=== PATIENT | male | born 1995 | race Two or more races ===

== ENCOUNTER 2016-08-15 05:39 | Day surgery (SDC) | payer OTHER ==
[2016-08-14 11:06] VITALS: BMI 26.5
[2016-08-15 06:40] VITALS: TEMP 97.5
--- NOTE | 2016-08-15 07:07 | HP ---
Admitting History and Physical - Admission History of Present Illness: patient is a 21 y/o male with a past medical history of bipolar and depression , that presents for ECT, his last ECT was 06/28/16. He reports feeling ongoing symptoms of depression, patient denies any suicidal or homicidal ideation. He does report receiving in the past (aprox 12 years ago), at [facility] with good results. Patient does report increasing his klonopin dose to 1mg BID. He reports compliance with prescribed medication. - Past Medical History Psych: Yes: Bipolar, Depression - Smoking History Smoking history: Never smoked Have you smoked in the past 12 months: No - Alcohol/Substance Use Hx Alcohol Use: No History of Substance Use: reports: None - Social History ADL: Independent History of Recent Travel: No Home Medications - Allergies Allergies/Adverse Reactions: Allergies Allergy/AdvReac Type Severity Reaction Status Date / Time No Known Allergies Allergy Verified 06/22/16 14:13 - Home Medications Home Medications: Ambulatory Orders Cyanocobalamin (Vitamin B-12) [Vitamin B12] 2,500 mcg PO DAILY 06/22/16 Folic Acid 0.4 mg PO DAILY 06/22/16 Inositol Niacinate [Inositol Hexanicotinate] 1,000 gm MC TID 06/22/16 Olanzapine [Zyprexa] 5 mg PO HS 06/22/16 Clonazepam [KlonoPIN] 0.5 mg PO BID 08/14/16 Family Disease History - Family Disease History Family History: Denies Review of Systems - Review of Systems Constitutional: reports: No Symptoms Eyes: reports: No Symptoms HENT: reports: No Symptoms Neck: reports: No Symptoms Cardiovascular: reports: No Symptoms Respiratory: reports: No Symptoms Gastrointestinal: reports: No Symptoms Genitourinary: reports: No Symptoms Musculoskeletal: reports: No Symptoms Integumentary: reports: No Symptoms Neurological: reports: No Symptoms Endocrine: reports: No Symptoms Hematology/Lymphatic: reports: No Symptoms Psychiatric: reports: Anxiety, Depression Physical Examination Vital Signs: Vital Signs Temperature 97.5 F L 08/15/16 06:33 Pulse Rate 98 H 08/15/16 06:33 Respiratory Rate 18 08/15/16 06:33 Blood Pressure 136/80 08/15/16 06:33 O2 Sat by Pulse Oximetry (%) 100 08/15/16 06:33 Constitutional: Yes: Well Nourished, No Distress, Calm Eyes: Yes: WNL, Conjunctiva Clear, EOM Intact HENT: Yes: WNL, Atraumatic, Normocephalic Neck: Yes: WNL, Supple, Trachea Midline Cardiovascular: Yes: WNL, Regular Rate and Rhythm, S1, S2 Respiratory: Yes: WNL, Regular, CTA Bilaterally Gastrointestinal: Yes: WNL, Normal Bowel Sounds, Soft ...Rectal Exam: Yes: Deferred Renal/: Yes: WNL Breast(s): Yes: WNL Musculoskeletal: Yes: WNL Extremities: Yes: WNL Edema: No Peripheral Pulses WNL: Yes Peripheral Pulses: Left Radial: 4+, Right Radial: 4+, Left Doralis Pedis: 3+, Right Dorsalis Pedis: 3+, Left Femoral: 3+, Right Femoral: 3+ Integumentary: Yes: Other (closed commodones to back) Neurological: Yes: WNL, Alert, Oriented ...Motor Strength: WNL Psychiatric: Yes: WNL, Alert, Oriented, Other (flat affect) Labs: reviewed 06/30 Imaging - Results EKG: Report Reviewed, Image Reviewed, Other (nsr) Assessment/Plan pt is a 21 y/o male that presents for ect, he has received ect in the past and denies any adverse reaction to anesthesia labs and ekg reviewed pt is low risk for procedure informed consent, risk/benefits to be obtained by Dr Steiner
[2016-08-15 08:52] VITALS: BP 133/70; PULSE 96
== END 2016-08-15 08:50 | disposition home or self-care (01) ==
LOC: FECT 05:39
PROVIDERS: ATTEND Psychiatry & Neurology Psychiatry
PROC: GZB4ZZZ Other Electroconvulsive Therapy (ICD-10-PCS; principal; 2016-08-15 08:15)
DX: F33.2 Major depressive disorder, recurrent severe without psychotic features (principal)
CPT/HCPCS: 90870; 94760

== ENCOUNTER 2016-08-18 05:41 | Day surgery (SDC) | payer OTHER ==
[2016-08-15 13:37] VITALS: BMI 26.5
[~2016-08-18 05:41] MED LIST: LACTATED RINGERS SOLUTION 1,000 ML IV SCH
[2016-08-18 08:39] VITALS: BP 130/64; TEMP 98.2
[2016-08-18 08:40] VITALS: PULSE 96
== END 2016-08-18 08:30 | disposition home or self-care (01) ==
LOC: FECT 05:41
PROVIDERS: ATTEND Psychiatry & Neurology Psychiatry
PROC: GZB4ZZZ Other Electroconvulsive Therapy (ICD-10-PCS; principal; 2016-08-18 08:15)
DX: F25.1 Schizoaffective disorder, depressive type (principal)
CPT/HCPCS: 90870; 94760

== ENCOUNTER 2016-08-22 05:41 | Day surgery (SDC) | payer OTHER ==
[2016-08-18 11:32] VITALS: BMI 26.5
[2016-08-22 06:46] VITALS: TEMP 98.1
[2016-08-22 08:28] VITALS: BP 129/64; PULSE 85
== END 2016-08-22 08:34 | disposition home or self-care (01) ==
LOC: FECT 05:41
PROVIDERS: ATTEND Psychiatry & Neurology Psychiatry
PROC: GZB4ZZZ Other Electroconvulsive Therapy (ICD-10-PCS; principal; 2016-08-22 07:45)
DX: F25.1 Schizoaffective disorder, depressive type (principal)
CPT/HCPCS: 90870; 94760

== ENCOUNTER 2016-08-25 06:18 | Day surgery (SDC) | payer OTHER ==
[2016-08-21 08:34] VITALS: BMI 26.5
[2016-08-25 08:30] VITALS: BP 122/72; PULSE 88; TEMP 98.4
== END 2016-08-25 08:30 | disposition home or self-care (01) ==
LOC: FECT 06:18
PROVIDERS: ATTEND Psychiatry & Neurology Psychiatry
PROC: GZB4ZZZ Other Electroconvulsive Therapy (ICD-10-PCS; principal; 2016-08-25 08:15)
DX: F25.1 Schizoaffective disorder, depressive type (principal)
CPT/HCPCS: 90870; 94760

== ENCOUNTER 2016-08-29 05:41 | Day surgery (SDC) | payer OTHER ==
[2016-08-28 11:17] VITALS: BMI 26.5
[2016-08-29 08:38] VITALS: TEMP 98.1
[2016-08-29] MEDS ORDERED: LACTATED RINGERS SOLUTION 1,000 ML IV SCH (09:30)
[2016-08-29 10:27] VITALS: BP 121/60; PULSE 89
== END 2016-08-29 10:10 | disposition home or self-care (01) ==
LOC: FECT 05:41
PROVIDERS: ATTEND Psychiatry & Neurology Psychiatry
PROC: GZB4ZZZ Other Electroconvulsive Therapy (ICD-10-PCS; principal; 2016-08-29 08:30)
DX: F25.1 Schizoaffective disorder, depressive type (principal)
CPT/HCPCS: 90870; 94760

== ENCOUNTER 2016-09-01 05:42 | Day surgery (SDC) | payer OTHER ==
[2016-08-28 11:43] VITALS: BMI 26.5
[2016-09-01 09:04] VITALS: TEMP 98.6
[2016-09-01] MEDS ORDERED: ONDANSETRON 4 MG/2 ML VIAL IVPUSH PRN (10:59)
[2016-09-04 11:52] VITALS: BP 120/70; PULSE 88
== END 2016-09-01 09:30 | disposition home or self-care (01) ==
LOC: FECT 05:42
PROVIDERS: ATTEND Psychiatry & Neurology Psychiatry
PROC: GZB4ZZZ Other Electroconvulsive Therapy (ICD-10-PCS; principal; 2016-09-01 08:30)
DX: F25.1 Schizoaffective disorder, depressive type (principal)
CPT/HCPCS: 90870; 94760

== ENCOUNTER → 2016-09-08 | Day surgery (SDC) | payer OTHER ==
[2016-09-01 11:21] VITALS: BMI 26.5
[2016-09-08 14:26] VITALS: TEMP 98
[2016-09-08 14:29] VITALS: BP 117/68; PULSE 94
== END | disposition home or self-care (01) ==
LOC: FECT 06:34
PROVIDERS: ATTEND Psychiatry & Neurology Psychiatry
PROC: GZB4ZZZ Other Electroconvulsive Therapy (ICD-10-PCS; principal; 2016-09-08 08:00)
DX: F25.1 Schizoaffective disorder, depressive type (principal)
CPT/HCPCS: 90870; 94760

== ENCOUNTER 2016-09-15 05:42 | Day surgery (SDC) | payer OTHER ==
[2016-09-08 12:30] VITALS: BMI 26.5
[2016-09-15 07:03] VITALS: TEMP 98.2
--- NOTE | 2016-09-15 07:26 | HP ---
Admitting History and Physical - Admission History of Present Illness: patient is a 21 y/o male with a past medical history of bipolar and depression. patient presents for ect, his last ect was 09/08/16. patient reports feeling well, he denies any changes to medications. patient denies any recent illnesses or hospitalizations. patient does report an improvement of depressive symptoms since starting ect. he denies any suicidal or homicidal ideation, visual or auditory hallucinations. History Source: Patient Limitations to Obtaining History: No Limitations - Past Medical History Psych: Yes: Bipolar, Depression - Smoking History Smoking history: Never smoked Have you smoked in the past 12 months: No - Alcohol/Substance Use Hx Alcohol Use: No History of Substance Use: reports: None - Social History Usual Living Arrangement: Yes: With Parent ADL: Independent History of Recent Travel: No Home Medications - Allergies Allergies/Adverse Reactions: Allergies Allergy/AdvReac Type Severity Reaction Status Date / Time No Known Allergies Allergy Verified 06/22/16 14:13 - Home Medications Home Medications: Ambulatory Orders Cyanocobalamin (Vitamin B-12) [Vitamin B12] 2,500 mcg PO DAILY 06/22/16 Folic Acid 0.4 mg PO DAILY 06/22/16 Inositol Niacinate [Inositol Hexanicotinate] 1,000 gm MC TID 06/22/16 Olanzapine [Zyprexa] 5 mg PO HS 06/22/16 Family Disease History - Family Disease History Family History: Unremarkable Review of Systems - Review of Systems Constitutional: reports: No Symptoms Eyes: reports: No Symptoms HENT: reports: No Symptoms Neck: reports: No Symptoms Cardiovascular: reports: No Symptoms Respiratory: reports: No Symptoms Gastrointestinal: reports: No Symptoms Genitourinary: reports: No Symptoms Musculoskeletal: reports: No Symptoms Integumentary: reports: No Symptoms Neurological: reports: No Symptoms Endocrine: reports: No Symptoms Hematology/Lymphatic: reports: No Symptoms Psychiatric: reports: No Symptoms Physical Examination Vital Signs: Vital Signs Temperature 98.2 F 09/15/16 07:00 Pulse Rate 80 09/15/16 07:00 Respiratory Rate 18 09/15/16 07:00 Blood Pressure 114/74 09/15/16 07:00 O2 Sat by Pulse Oximetry (%) 100 09/15/16 07:00 Constitutional: Yes: Well Nourished, No Distress, Calm Eyes: Yes: WNL, Conjunctiva Clear, EOM Intact HENT: Yes: WNL, Atraumatic, Normocephalic Neck: Yes: WNL, Supple, Trachea Midline Cardiovascular: Yes: WNL, Regular Rate and Rhythm, S1, S2 Respiratory: Yes: WNL, Regular, CTA Bilaterally Gastrointestinal: Yes: WNL, Normal Bowel Sounds, Soft ...Rectal Exam: Yes: Deferred Renal/: Yes: WNL Breast(s): Yes: WNL Musculoskeletal: Yes: WNL Extremities: Yes: WNL Edema: No Peripheral Pulses WNL: Yes Peripheral Pulses: Left Radial: 4+, Right Radial: 4+, Left Doralis Pedis: 3+, Right Dorsalis Pedis: 3+, Left Femoral: 3+, Right Femoral: 3+ Integumentary: Yes: WNL, Other (closed commondenes to back) Neurological: Yes: WNL, Alert, Oriented ...Motor Strength: WNL Psychiatric: Yes: WNL, Alert, Oriented Labs: labs reviewed 07/13/16 Imaging - Results EKG: Image Reviewed, Other (nsr no ectopy) Assessment/Plan pt is a 21 y/o male that presents for ect, he has received ect in the past and denies any adverse reaction to anesthesia. labs and ekg reviewed pt is low risk for procedure informed consent, risks/benefits to be obtained by Dr Steiner
[2016-09-15 09:43] VITALS: BP 120/62; PULSE 94
== END 2016-09-15 09:43 | disposition home or self-care (01) ==
LOC: FECT 05:42
PROVIDERS: ATTEND Psychiatry & Neurology Psychiatry
PROC: GZB4ZZZ Other Electroconvulsive Therapy (ICD-10-PCS; principal; 2016-09-15 08:30)
DX: F25.1 Schizoaffective disorder, depressive type (principal)
CPT/HCPCS: 90870; 94760

== ENCOUNTER 2016-12-20 05:44 | Day surgery (SDC) | payer OTHER ==
--- NOTE | 2016-12-20 07:21 | HP ---
Admitting History and Physical - Admission History of Present Illness: patient is a 21 y/o male with a past medical history of depression and bipolar disorder. Patient presents for ect, his last ect was 09/29/16. Patient reports stopping ect for 2 months, however, his depressive symptoms returned. Mother reports his zyprexa was increased to 20mg. patient wants to decrease his zyprexa dose and wants to restarts ect to wean off his medications. Patient denies any suicidal or homicidal ideation, visual or auditory hallucinations. History Source: Patient, Family Member Limitations to Obtaining History: No Limitations - Past Medical History Psych: Yes: Bipolar, Depression - Smoking History Smoking history: Never smoked Have you smoked in the past 12 months: No - Alcohol/Substance Use Hx Alcohol Use: No History of Substance Use: reports: None - Social History Usual Living Arrangement: Yes: With Parent ADL: Independent History of Recent Travel: No Home Medications - Allergies Allergies/Adverse Reactions: Allergies Allergy/AdvReac Type Severity Reaction Status Date / Time No Known Allergies Allergy Verified 06/22/16 14:13 - Home Medications Home Medications: Ambulatory Orders Cyanocobalamin (Vitamin B-12) [Vitamin B12] 2,500 mcg PO DAILY 06/22/16 Folic Acid 0.4 mg PO DAILY 06/22/16 Inositol Niacinate [Inositol Hexanicotinate] 1,000 gm MC TID 06/22/16 Olanzapine [Zyprexa] 5 mg PO HS 06/22/16 Family Disease History - Family Disease History Family History: Denies Review of Systems - Review of Systems Constitutional: reports: No Symptoms Eyes: reports: No Symptoms HENT: reports: No Symptoms Neck: reports: No Symptoms Cardiovascular: reports: No Symptoms Respiratory: reports: No Symptoms Gastrointestinal: reports: No Symptoms Genitourinary: reports: No Symptoms Musculoskeletal: reports: No Symptoms Integumentary: reports: No Symptoms Neurological: reports: No Symptoms Endocrine: reports: No Symptoms Hematology/Lymphatic: reports: No Symptoms Psychiatric: reports: Depression Physical Examination Vital Signs: Vital Signs Period Temp Pulse Resp BP Sys/Brewer Pulse Ox Last 24 Hr 97.9 F 84 18 132/70 100 Constitutional: Yes: Well Nourished, No Distress, Calm Eyes: Yes: WNL, Conjunctiva Clear, EOM Intact HENT: Yes: WNL, Atraumatic, Normocephalic Neck: Yes: WNL, Supple, Trachea Midline Cardiovascular: Yes: WNL, Regular Rate and Rhythm, S1, S2 Respiratory: Yes: WNL, Regular, CTA Bilaterally Gastrointestinal: Yes: WNL, Normal Bowel Sounds, Soft ...Rectal Exam: Yes: Deferred Renal/: Yes: WNL Breast(s): Yes: WNL Musculoskeletal: Yes: WNL Extremities: Yes: WNL Edema: No Peripheral Pulses WNL: Yes Peripheral Pulses: Left Radial: 4+, Right Radial: 4+, Left Doralis Pedis: 3+, Right Dorsalis Pedis: 3+, Left Femoral: 3+, Right Femoral: 3+ Integumentary: Yes: WNL Neurological: Yes: WNL, Alert, Oriented ...Motor Strength: WNL Psychiatric: Yes: WNL, Alert, Oriented Labs: reviewed 06/30 Imaging - Results EKG: Other (nsr) Assessment/Plan patient is a 21 y/o male that presents for ect, labs and ekg reviewed pt is low risk for procedure informed consent, risks/benefits to be obtained by Dr Steiner
[2016-12-20] MEDS ORDERED: ACETAMINOPHEN 325 MG TABLET (FP) PO PRN (07:45)
[2016-12-20] MEDS ORDERED: ONDANSETRON 4 MG/2 ML VIAL IVPUSH PRN (07:45)
[2016-12-20 09:05] VITALS: TEMP 98.1
[2016-12-20 09:20] VITALS: BP 122/72; PULSE 82
== END 2016-12-20 09:21 | disposition home or self-care (01) ==
LOC: FECT 05:44
PROVIDERS: ATTEND Psychiatry & Neurology Psychiatry
PROC: GZB4ZZZ Other Electroconvulsive Therapy (ICD-10-PCS; principal; 2016-12-20 08:15)
DX: F25.1 Schizoaffective disorder, depressive type (principal)
CPT/HCPCS: 90870; 94760

== ENCOUNTER 2016-12-22 06:18 | Day surgery (SDC) | payer OTHER ==
[2016-12-20 10:55] VITALS: BMI 26.5
[2016-12-22 07:38] LABS: BASOPHIL 0.8 % (0-2.0); EOSINOPHIL 3.2 % (0-4.5); MCH 29.4 pg (25.7-33.7); MCHC 34.2 g/dl (32.0-35.9); NEUTROPHILS 55.9 % (42.8-82.8); PLATELET COUNT 156 K/MM3 (134-434); RDW 11.2 % (11.9-15.9); WHITE BLOOD COUNT 8.4 K/mm3 (4.0-10.8)
[2016-12-22 08:23] LABS: ALBUMIN 4.5 g/dl (3.5-5.0); ALK PHOS 54 U/L (32-92); ANION GAP 8 (8-16); BILIRUBIN,TOTAL 0.7 mg/dl (0.2-1.0); CALCIUM 9.3 mg/dl (8.4-10.2); CO2 29 mmol/L (22-28); CREATININE 0.6 mg/dl (0.6-1.3); GLUCOSE,RANDOM 102 mg/dl (74-106); SGOT/AST 17 U/L (10-42); SGPT/ALT 24 U/L (10-40); TOT PROT 7.5 g/dl (6.4-8.3)
[2016-12-22] MEDS ORDERED: LACTATED RINGERS SOLUTION 1,000 ML IV SCH (09:15)
[2016-12-22 12:07] VITALS: BP 118/67; PULSE 94; TEMP 98.7
--- NOTE | 2016-12-25 23:16 | EKG ---
Test Reason : Blood Pressure : / mmHG Vent. Rate : 099 BPM Atrial Rate : 099 BPM P-R Int : 120 ms QRS Dur : 080 ms QT Int : 336 ms P-R-T Axes : 037 069 027 degrees QTc Int : 431 ms NORMAL SINUS RHYTHM NORMAL ECG WHEN COMPARED WITH ECG OF 23-JUN-2016 06:47, NO SIGNIFICANT CHANGE WAS FOUND Confirmed by BALJIT RICHARDSON MD ([id number]) on 12/25/2016 11:15:58 PM Referred By: Mio Steiner Confirmed By:BALJIT RICHARDSON MD
== END 2016-12-22 10:15 | disposition home or self-care (01) ==
LOC: FECT 06:18
PROVIDERS: ATTEND Psychiatry & Neurology Psychiatry
PROC: GZB4ZZZ Other Electroconvulsive Therapy (ICD-10-PCS; principal; 2016-12-22 08:30)
DX: F25.1 Schizoaffective disorder, depressive type (principal)
CPT/HCPCS: 36415; 80053; 85025; 90870; 93005; 93010; 94760

== ENCOUNTER 2016-12-26 05:41 | Day surgery (SDC) | payer OTHER ==
[2016-12-25 09:05] VITALS: BMI 26.5
[2016-12-26 10:17] VITALS: BP 141/66; PULSE 68; TEMP 98.3
== END 2016-12-26 10:12 | disposition home or self-care (01) ==
LOC: FECT 05:41
PROVIDERS: ATTEND Psychiatry & Neurology Psychiatry
PROC: GZB4ZZZ Other Electroconvulsive Therapy (ICD-10-PCS; principal; 2016-12-26 08:30)
DX: F25.1 Schizoaffective disorder, depressive type (principal)
CPT/HCPCS: 90870; 94760

== ENCOUNTER 2016-12-29 07:26 | Day surgery (SDC) | payer OTHER ==
[2016-12-26 11:53] VITALS: BMI 26.5
[2016-12-29 07:41] VITALS: TEMP 98.1
[2016-12-29 09:44] VITALS: BP 118/62; PULSE 84
== END 2016-12-29 09:35 | disposition home or self-care (01) ==
LOC: FECT 07:26
PROVIDERS: ATTEND Psychiatry & Neurology Psychiatry
PROC: GZB4ZZZ Other Electroconvulsive Therapy (ICD-10-PCS; principal; 2016-12-29 08:00)
DX: F25.1 Schizoaffective disorder, depressive type (principal)
CPT/HCPCS: 90870; 94760

== ENCOUNTER 2017-02-06 06:50 | Day surgery (SDC) | payer OTHER ==
[2017-02-06 07:17] VITALS: BMI 24.4
--- NOTE | 2017-02-06 07:21 | HP ---
Admitting History and Physical - Admission Chief Complaint: presents for ect History of Present Illness: patient is a 22 y/o male with a past medical history of depression and bipolar disorder. Patient presents for ect, his last ect was 12/26/16. patient reports feeling well, he denies any recent hospitalizations, patient denies any recent illnesses or medication changes. He denies any suicidal or homicidal ideation, visual or auditory hallucinations. History Source: Patient Limitations to Obtaining History: No Limitations - Past Medical History Psych: Yes: Bipolar, Depression - Smoking History Smoking history: Never smoked Have you smoked in the past 12 months: No - Alcohol/Substance Use Hx Alcohol Use: No History of Substance Use: reports: None - Social History Usual Living Arrangement: Yes: With Parent ADL: Independent History of Recent Travel: No Home Medications - Allergies Allergies/Adverse Reactions: Allergies Allergy/AdvReac Type Severity Reaction Status Date / Time No Known Allergies Allergy Verified 12/26/16 07:58 - Home Medications Home Medications: Ambulatory Orders Cyanocobalamin (Vitamin B-12) [Vitamin B12] 2,500 mcg PO DAILY 06/22/16 Folic Acid 0.4 mg PO DAILY 06/22/16 Inositol Niacinate [Inositol Hexanicotinate] 1,000 gm MC TID 06/22/16 Olanzapine [Zyprexa] 10 mg PO HS 06/22/16 Family Disease History - Family Disease History Family History: Unremarkable Review of Systems - Review of Systems Constitutional: reports: No Symptoms Eyes: reports: No Symptoms HENT: reports: No Symptoms Neck: reports: No Symptoms Cardiovascular: reports: No Symptoms Respiratory: reports: No Symptoms Gastrointestinal: reports: No Symptoms Genitourinary: reports: No Symptoms Musculoskeletal: reports: No Symptoms Integumentary: reports: No Symptoms Neurological: reports: No Symptoms Endocrine: reports: No Symptoms Hematology/Lymphatic: reports: No Symptoms Psychiatric: reports: No Symptoms Physical Examination Constitutional: Yes: Well Nourished, No Distress, Calm Eyes: Yes: WNL, Conjunctiva Clear, EOM Intact HENT: Yes: WNL, Atraumatic, Normocephalic Neck: Yes: WNL, Supple, Trachea Midline Cardiovascular: Yes: WNL, Regular Rate and Rhythm, S1, S2 Respiratory: Yes: WNL, Regular, CTA Bilaterally Gastrointestinal: Yes: WNL, Normal Bowel Sounds, Soft ...Rectal Exam: Yes: Deferred Renal/: Yes: WNL Musculoskeletal: Yes: WNL Extremities: Yes: WNL Edema: No Peripheral Pulses WNL: Yes Peripheral Pulses: Left Radial: 4+, Right Radial: 4+, Left Doralis Pedis: 3+, Right Dorsalis Pedis: 3+, Left Femoral: 3+, Right Femoral: 3+ Integumentary: Yes: Other (closed commodones to face and back) Neurological: Yes: WNL, Alert, Oriented ...Motor Strength: WNL Psychiatric: Yes: WNL, Alert, Oriented Labs: reviewed 12/31 Imaging - Results EKG: Image Reviewed, Other (nsr) Assessment/Plan patient is a 22y/o male that presents for ect, labs and ekg reviewed pt is low risk for procedure informed consent, risks/benefits to be obtained by Dr Steiner
[2017-02-06 09:27] VITALS: TEMP 98.8
[2017-02-06 09:29] VITALS: BP 115/76; PULSE 89
== END 2017-02-06 09:30 | disposition home or self-care (01) ==
LOC: FECT 06:50
PROVIDERS: ATTEND Psychiatry & Neurology Psychiatry
PROC: GZB4ZZZ Other Electroconvulsive Therapy (ICD-10-PCS; principal; 2017-02-06 07:30)
DX: F25.1 Schizoaffective disorder, depressive type (principal)
CPT/HCPCS: 90870; 94760

== ENCOUNTER 2017-02-09 05:44 | Day surgery (SDC) | payer OTHER ==
[2017-02-09 06:51] VITALS: TEMP 98
[2017-02-09] MEDS ORDERED: LACTATED RINGERS SOLUTION 1,000 ML IV SCH (07:45)
[2017-02-09 08:40] VITALS: BP 114/74; PULSE 89
== END 2017-02-09 08:35 | disposition home or self-care (01) ==
LOC: FECT 05:44
PROVIDERS: ATTEND Psychiatry & Neurology Psychiatry
PROC: GZB4ZZZ Other Electroconvulsive Therapy (ICD-10-PCS; principal; 2017-02-09 07:30)
DX: F25.1 Schizoaffective disorder, depressive type (principal)
CPT/HCPCS: 90870; 94760

== ENCOUNTER 2018-01-30 07:30 | Day surgery (SDC) | payer OTHER ==
[2018-01-30] MEDS ORDERED: PROMETHAZINE HCL 25 MG/1 ML VIAL IVPB PRN (08:01)
[2018-01-30] MEDS ORDERED: ACETAMINOPHEN 325 MG TABLET (FP) PO PRN (08:01)
[2018-01-30] MEDS ORDERED: ONDANSETRON 4 MG/2 ML VIAL IVPUSH PRN (08:01)
[2018-01-30] MEDS ORDERED: LACTATED RINGERS SOLUTION 1,000 ML IV SCH (08:15)
[2018-01-30 08:23] LABS: EOS % 2.1 % (0-4.5); HEMATOCRIT 45.5 % (35.4-49); HEMOGLOBIN 15.3 GM/dl (11.7-16.9); LYMPH % 43.9 % (8-40); MCH 29.1 pg (25.7-33.7); MCHC 33.5 g/dl (32.0-35.9); MEAN CELL VOLUME 86.8 fl (80-96); MEAN PLT VOLUME 9.7 fl (7.5-11.1); MONO % 10.6 % (3.8-10.2); NEUT % 42.4 % (42.8-82.8); PLATELET COUNT 177 K/MM3 (134-434); RBC 5.24 M/mm3 (4.00-5.60); RDW 12.1 % (11.9-15.9)
[2018-01-30 08:38] LABS: ALBUMIN 4.4 g/dl (3.5-5.0); ALK PHOS 68 U/L (32-92); ANION GAP 7 MMOL/L (8-16); BILIRUBIN,TOTAL 0.6 mg/dl (0.2-1.0); BLOOD UREA NITROGEN 11 mg/dl (7-18); CALCIUM 9.2 mg/dl (8.4-10.2); CHLORIDE 103 mmol/L (98-107); CO2 26 mmol/L (22-28); CREATININE 0.6 mg/dl (0.6-1.3); GLUCOSE,RANDOM 103 mg/dl (74-106); SGOT/AST 21 U/L (10-42); SGPT/ALT 41 U/L (10-40); SODIUM 136 mmol/L (136-145); TOT PROT 7.2 g/dl (6.4-8.3)
[2018-01-30 08:58] VITALS: BMI 28.0
--- NOTE | 2018-01-30 09:04 | HP ---
Admitting History and Physical - Admission History of Present Illness: Patient is a 23 y/o male with a past medical history of depression and bipolar disorder. patient presents for ect, his last ect was 02/23/17. patient's mother at bedside, patient reports feeling well, denies any recent hospitalizations or illnesses. Patient is attending [facility] and reports an increase of depressive symptoms. He denies any suicidal or homicidal ideation. Patient denies any visual or auditory hallucinations. patient reports compliance with prescribed medication. History Source: Patient Limitations to Obtaining History: No Limitations - Past Medical History Psych: Yes: Bipolar, Depression - Smoking History Smoking history: Never smoked Have you smoked in the past 12 months: No - Alcohol/Substance Use Hx Alcohol Use: No History of Substance Use: reports: None - Social History Usual Living Arrangement: Yes: With Parent ADL: Independent History of Recent Travel: No Home Medications - Allergies Allergies/Adverse Reactions: Allergies Allergy/AdvReac Type Severity Reaction Status Date / Time No Known Allergies Allergy Verified 02/06/17 07:19 - Home Medications Home Medications: Ambulatory Orders Cyanocobalamin (Vitamin B-12) [Vitamin B12] 2,500 mcg PO DAILY 06/22/16 Folic Acid 0.4 mg PO DAILY 06/22/16 Inositol Niacinate [Inositol Hexanicotinate] 1,000 gm MC TID 06/22/16 Olanzapine [Zyprexa] 10 mg PO HS 06/22/16 Family Disease History - Family Disease History Family History: Denies Review of Systems - Review of Systems Constitutional: reports: No Symptoms Eyes: reports: No Symptoms HENT: reports: No Symptoms Neck: reports: No Symptoms Cardiovascular: reports: No Symptoms Respiratory: reports: No Symptoms Gastrointestinal: reports: No Symptoms Genitourinary: reports: No Symptoms Musculoskeletal: reports: No Symptoms Integumentary: reports: No Symptoms Neurological: reports: No Symptoms Endocrine: reports: No Symptoms Hematology/Lymphatic: reports: No Symptoms Psychiatric: reports: No Symptoms Physical Examination Vital Signs: Vital Signs Temperature 98.7 F 01/30/18 08:53 Pulse Rate 89 01/30/18 08:53 Respiratory Rate 18 01/30/18 08:53 Blood Pressure 94/66 01/30/18 08:53 O2 Sat by Pulse Oximetry (%) 95 01/30/18 08:53 Constitutional: Yes: Well Nourished, No Distress, Calm, Thin Eyes: Yes: WNL, Conjunctiva Clear, EOM Intact HENT: Yes: WNL, Atraumatic, Normocephalic Neck: Yes: WNL, Supple, Trachea Midline Cardiovascular: Yes: WNL, Regular Rate and Rhythm, S1, S2 Respiratory: Yes: WNL, Regular, CTA Bilaterally Gastrointestinal: Yes: WNL, Normal Bowel Sounds, Soft ...Rectal Exam: Yes: Deferred Renal/: Yes: WNL Breast(s): Yes: WNL Musculoskeletal: Yes: WNL Extremities: Yes: WNL Edema: No Peripheral Pulses WNL: Yes Peripheral Pulses: Left Radial: 4+, Right Radial: 4+, Left Doralis Pedis: 3+, Right Dorsalis Pedis: 3+, Left Femoral: 3+, Right Femoral: 3+ Integumentary: Yes: WNL Neurological: Yes: WNL, Alert, Oriented ...Motor Strength: WNL Psychiatric: Yes: WNL, Alert, Oriented Labs: CBC, BMP 01/30/18 08:15 01/30/18 08:15 Imaging - Results EKG: Image Reviewed, Other (nsr) Assessment/Plan patient is a 23 y/o male that presents for ect, labs and ekg reviewed patient is medically optimized for procedure informed consent, risks/benefits to be obtained by Dr Steiner
[2018-01-30 10:05] VITALS: TEMP 98.6
--- NOTE | 2018-01-30 10:05 | EKG ---
Test Reason : Blood Pressure : / mmHG Vent. Rate : 076 BPM Atrial Rate : 076 BPM P-R Int : 130 ms QRS Dur : 084 ms QT Int : 376 ms P-R-T Axes : 008 043 053 degrees QTc Int : 423 ms NORMAL SINUS RHYTHM NORMAL ECG WHEN COMPARED WITH ECG OF 22-DEC-2016 07:40, NO SIGNIFICANT CHANGE WAS FOUND Confirmed by EBER DENNISON MD ([id number]) on 01/30/2018 10:05:04 AM Referred By: Mio Steiner Confirmed By:EBER DENNISON MD
[2018-01-30 11:08] VITALS: BP 118/74; PULSE 88
== END 2018-01-30 11:00 | disposition home or self-care (01) ==
LOC: FECT 07:30
PROVIDERS: ATTEND Psychiatry & Neurology Psychiatry
PROC: GZB4ZZZ Other Electroconvulsive Therapy (ICD-10-PCS; principal; 2018-01-30 08:30)
DX: F25.1 Schizoaffective disorder, depressive type (principal)
CPT/HCPCS: 36415; 80053; 85025; 90870; 93005; 94760

== ENCOUNTER 2018-02-01 05:56 | Day surgery (SDC) | payer OTHER ==
[2018-01-31 15:50] VITALS: BMI 28.0
[2018-02-01] MEDS ORDERED: ONDANSETRON 4 MG/2 ML VIAL IVPUSH PRN (07:58)
[2018-02-01] MEDS ORDERED: PROMETHAZINE HCL 25 MG/1 ML VIAL IVPUSH PRN (07:58)
[2018-02-01] MEDS ORDERED: ACETAMINOPHEN 325 MG TABLET (FP) PO PRN (07:58)
[2018-02-01] MEDS ORDERED: LACTATED RINGERS SOLUTION 1,000 ML IV SCH (08:00)
[2018-02-01] MEDS ORDERED: MIDAZOLAM HCL 2 MG/2 ML SINGLE DOSE VIAL ONE (08:55)
[2018-02-01 10:01] VITALS: TEMP 97.9
[2018-02-01 10:34] VITALS: BP 109/65; PULSE 92
== END 2018-02-01 10:20 | disposition home or self-care (01) ==
LOC: FECT 05:56
PROVIDERS: ATTEND Psychiatry & Neurology Psychiatry
PROC: GZB4ZZZ Other Electroconvulsive Therapy (ICD-10-PCS; principal; 2018-02-01 08:30)
DX: F25.1 Schizoaffective disorder, depressive type (principal)

== ENCOUNTER 2018-02-08 05:42 | Day surgery (SDC) | payer OTHER ==
[2018-02-04 13:39] VITALS: BMI 25.4
[2018-02-08 10:58] VITALS: TEMP 97.9
[2018-02-13 12:45] VITALS: BP 100/61; PULSE 89
== END 2018-02-08 10:00 | disposition home or self-care (01) ==
LOC: FECT 05:42
PROVIDERS: ATTEND Psychiatry & Neurology Psychiatry
PROC: GZB4ZZZ Other Electroconvulsive Therapy (ICD-10-PCS; principal; 2018-02-08 08:00)
DX: F25.1 Schizoaffective disorder, depressive type (principal)
CPT/HCPCS: 90870; 94760

== ENCOUNTER 2018-08-28 06:25 | Day surgery (SDC) | payer OTHER ==
[2018-08-27 10:44] VITALS: BMI 25.4
[2018-08-28] MEDS ORDERED: oxyCODONE HCL 5 MG TABLET PO PRN ×2 (06:50)
[2018-08-28 07:07] LABS: ALBUMIN 4.5 g/dl (3.4-5.0); BILIRUBIN,TOTAL 0.6 mg/dl (0.2-1); CALCIUM 9.4 mg/dl (8.5-10); CREATININE 0.7 mg/dl (0.55-1.3); MAGNESIUM 1.8 mg/dL (1.8-2.4); POTASSIUM 3.9 mmol/L (3.5-5.1); TOT PROT 7.5 g/dl (6.4-8.2)
[2018-08-28 07:08] LABS: HEMATOCRIT 46.7 % (35.4-49); HEMOGLOBIN 16.1 GM/dl (11.7-16.9); MCH 29.5 pg (25.7-33.7); MCHC 34.4 g/dl (32.0-35.9); MEAN CELL VOLUME 85.8 fl (80-96); MEAN PLT VOLUME 10.6 fl (7.5-11.1); PLATELET COUNT 174 K/MM3 (134-434); RBC 5.45 M/mm3 (4.00-5.60); RDW 11.5 % (11.9-15.9); WHITE BLOOD COUNT 8.6 K/mm3 (4.0-10.8)
[2018-08-28 07:16] VITALS: TEMP 98.7
--- NOTE | 2018-08-28 07:22 | HP ---
CHIEF COMPLAINT: Major depression PCP: [facility] Primary Psychiatrist: Dr. Ramsey Curry, [address] HISTORY OF PRESENT ILLNESS: 23 year-old male with a PMH significant for major depressive disorder and bipolar disorder. Patient has been receiving ECT intermittently since 2017. He presents today for ECT. Recent Events: * none reported Allergies No Known Allergies Allergy (Verified 02/06/17 07:19) HOME MEDICATIONS: Home Medications Medication Instructions Recorded Cyanocobalamin (Vitamin B-12) 2,500 mcg PO DAILY 06/22/16 [Vitamin B12] Folic Acid 0.4 mg PO DAILY 06/22/16 Inositol Niacinate [Inositol 1,000 gm MC TID 06/22/16 Hexanicotinate] Olanzapine 2.5 mg PO HS 08/27/18 Olanzapine 5 mg PO HS 08/27/18 REVIEW OF SYSTEMS CONSTITUTIONAL: Absent: fever, chills, diaphoresis, generalized weakness, malaise, loss of appetite, weight change HEENT: Absent: rhinorrhea, nasal congestion, throat pain, throat swelling, difficulty swallowing, mouth swelling, ear pain, eye pain, visual changes CARDIOVASCULAR: Absent: chest pain, syncope, palpitations, irregular heart rate, lightheadedness , peripheral edema RESPIRATORY: Absent: cough, shortness of breath, dyspnea with exertion, orthopnea, wheezing, stridor, hemoptysis GASTROINTESTINAL: Absent: abdominal pain, abdominal distension, nausea, vomiting, diarrhea, constipation, melena, hematochezia GENITOURINARY: Absent: dysuria, frequency, urgency, hesitancy, hematuria, flank pain, genital pain MUSCULOSKELETAL: Absent: myalgia, arthralgia, joint swelling, back pain, neck pain SKIN: Absent: rash, itching, pallor HEMATOLOGIC/IMMUNOLOGIC: Absent: easy bleeding, easy bruising, lymphadenopathy, frequent infections ENDOCRINE: Absent: unexplained weight gain, unexplained weight loss, heat intolerance, cold intolerance NEUROLOGIC: Absent: headache, focal weakness or paresthesias, dizziness, unsteady gait, seizure, mental status changes, bladder or bowel incontinence PHYSICAL EXAMINATION Vital Signs Period Temp Pulse Resp BP Sys/Brewer Pulse Ox Last 24 Hr 98.7 F 75-108 16-24 104-138/49-77 96-98 GENERAL: Awake, alert, and fully oriented, in no acute distress. HEAD: Normal with no signs of trauma. EYES: Pupils equal, round and reactive to light, sclera anicteric, conjunctiva clear. LUNGS: Breath sounds equal, clear to auscultation bilaterally. No wheezes, and no crackles. No accessory muscle use. HEART: Regular rate and rhythm, normal S1 and S2 ABDOMEN: Soft, nontender, not distended MUSCULOSKELETAL: Normal range of motion at all joints. No bony deformities or tenderness. No CVA tenderness. UPPER EXTREMITIES: 2+ pulses, warm, well-perfused. No cyanosis. No clubbing. No peripheral edema. LOWER EXTREMITIES: 2+ pulses, warm, well-perfused. No calf tenderness. No peripheral edema. NEUROLOGICAL: Cranial nerves II-XII intact. Normal speech. ASSESSMENT/PLAN: 23 year-old male with a PMH significant for major depressive disorder and bipolar disorder. Presents today for ECT. Cardiac --no cardiac history --Revised Cardiac Risk Index for Pre-Operative Risk: 0 points, 0.4% risk of major cardiac event Pulmonary --no pulmonary history Neurological --no neurological or neurosurgical history; no history of trauma Anesthesia --no reported problems with anesthesia ECT is a low risk procedure. The relative benefits of the planned procedure outweigh the relative risks for this patient at this time. Visit type - Emergency Visit Emergency Visit: No - New Patient This patient is new to me today: Yes Date on this admission: 08/28/18 - Critical Care Critical Care patient: No
[2018-08-28] MEDS ORDERED: MIDAZOLAM HCL 2 MG/2 ML SINGLE DOSE VIAL ONE ×2 (07:56→08:00)
[2018-08-28] MEDS ORDERED: MIDAZOLAM HCL 2 MG/2 ML SINGLE DOSE VIAL IVPUSH ONE ×2 (08:00→10:19)
[2018-08-28 09:59] VITALS: BP 104/74; PULSE 99
--- NOTE | 2018-08-28 10:24 | EKG ---
Test Reason : Blood Pressure : / mmHG Vent. Rate : 088 BPM Atrial Rate : 088 BPM P-R Int : 130 ms QRS Dur : 086 ms QT Int : 354 ms P-R-T Axes : 068 041 053 degrees QTc Int : 428 ms NORMAL SINUS RHYTHM NORMAL ECG WHEN COMPARED WITH ECG OF 30-JAN-2018 07:53, NO SIGNIFICANT CHANGE WAS FOUND Confirmed by EBER DENNISON MD ([id number]) on 08/28/2018 10:23:46 AM Referred By: Mio Steiner Confirmed By:EBER DENNISON MD
== END 2018-08-28 09:55 | disposition home or self-care (01) ==
LOC: FECT 06:25
PROVIDERS: ATTEND Psychiatry & Neurology Psychiatry
PROC: GZB4ZZZ Other Electroconvulsive Therapy (ICD-10-PCS; principal; 2018-08-28 07:30)
DX: F25.1 Schizoaffective disorder, depressive type (principal)
CPT/HCPCS: 36415; 80053; 83735; 85027; 90870; 93005; 94760

== ENCOUNTER 2018-09-02 07:36 | Day surgery (SDC) | payer OTHER ==
[2018-09-02 08:05] VITALS: BMI 25.4
[2018-09-02] MEDS ORDERED: MIDAZOLAM HCL 2 MG/2 ML SINGLE DOSE VIAL ONE (09:00)
[2018-09-02 10:34] VITALS: TEMP 98.1
[2018-09-02 10:36] VITALS: BP 122/60; PULSE 96
== END 2018-09-02 11:03 | disposition home or self-care (01) ==
LOC: FECT 07:36
PROVIDERS: ATTEND Psychiatry & Neurology Psychiatry
PROC: GZB4ZZZ Other Electroconvulsive Therapy (ICD-10-PCS; principal; 2018-09-02 08:15)
DX: F25.1 Schizoaffective disorder, depressive type (principal)
CPT/HCPCS: 90870; 94760

== ENCOUNTER 2018-09-06 05:46 | Day surgery (SDC) | payer OTHER ==
[2018-09-06 07:32] VITALS: BMI 25.4
[2018-09-06] MEDS ORDERED: ACETAMINOPHEN 325 MG TABLET (FP) PO PRN (08:26)
[2018-09-06] MEDS ORDERED: ONDANSETRON 4 MG/2 ML VIAL IVPUSH PRN (08:26)
[2018-09-06] MEDS ORDERED: LACTATED RINGERS SOLUTION 1,000 ML IV SCH (08:30)
[2018-09-06] MEDS ORDERED: MIDAZOLAM HCL 2 MG/2 ML SINGLE DOSE VIAL ONE (08:56)
[2018-09-06 10:43] VITALS: TEMP 98.3
[2018-09-06 10:44] VITALS: BP 112/65; PULSE 94
== END 2018-09-06 10:35 | disposition home or self-care (01) ==
LOC: FECT 05:46
PROVIDERS: ATTEND Psychiatry & Neurology Psychiatry
PROC: GZB4ZZZ Other Electroconvulsive Therapy (ICD-10-PCS; principal; 2018-09-06 07:45)
DX: F25.9 Schizoaffective disorder, unspecified (principal)

== ENCOUNTER 2018-09-11 09:00 | Day surgery (SDC) | payer OTHER | END 2018-09-11 10:40 | disposition home or self-care (01) | LOC: FECT 09:00 ==

== ENCOUNTER 2018-09-18 07:11 | Day surgery (SDC) | payer OTHER | END 2018-09-18 09:15 | disposition home or self-care (01) | LOC: FECT 07:11 ==

== ENCOUNTER 2020-12-03 08:23 | Day surgery (SDC) | payer OTHER ==
[2020-12-03 09:13] VITALS: BMI 26.5
[2020-12-03 09:41] LABS: BASO % 1.8 % (0-2.0); EOS % 0.6 % (0-4.5); HEMATOCRIT 44.3 % (35.4-49); LYMPH % 24.5 % (8-40); MCH 29.4 pg (25.7-33.7); MCHC 33.9 g/dl (32.0-35.9); MEAN CELL VOLUME 86.7 fl (80-96); MEAN PLT VOLUME 9.8 fl (7.5-11.1); MONO % 8.6 % (3.8-10.2); NEUT % 64.5 % (42.8-82.8); PLATELET COUNT 177 10^3/uL (134-434); RBC 5.12 M/mm3 (4.00-5.60); RDW 12.5 % (11.9-15.9); WHITE BLOOD COUNT 6.3 K/mm3 (4.0-10.8)
[2020-12-03] MEDS ORDERED: PROPOFOL 20 ML ONE (09:45)
[2020-12-03 09:49] LABS: ALBUMIN 4.7 g/dl (3.4-5.0); BILIRUBIN,TOTAL 0.5 mg/dl (0.2-1); CALCIUM 9.2 mg/dl (8.5-10); CREATININE 0.7 mg/dl (0.55-1.3); TOT PROT 7.6 g/dl (6.4-8.2)
[2020-12-03 11:22] VITALS: TEMP 98.6
[2020-12-03 11:42] VITALS: BP 121/78; PULSE 99
[2020-12-04 13:08] LABS: SARS-CoV-2 NAA Not Detected (Not Detected)
== END 2020-12-03 11:42 | disposition home or self-care (01) ==
LOC: FECT 08:23
PROVIDERS: ATTEND Psychiatry & Neurology Psychiatry
PROC: GZB4ZZZ Other Electroconvulsive Therapy (ICD-10-PCS; principal; 2020-12-03 10:00)
DX: F32.9 Major depressive disorder, single episode, unspecified (principal)
CPT/HCPCS: 36415; 80053; 85025; 90870; 94760; C9803; U0003; U0005